=== PATIENT | female | born 1985 | race Caucasian/White ===

== ENCOUNTER 2018-06-04 02:06 | Emergency (ER) | payer MEDICAID ==
[~2018-06-04] VITALS: Ht 139.7 cm; Wt 37.3 kg
[2018-06-04] MEDS ORDERED: KETOROLAC TROMETHAMINE 60 MG/2 ML VIAL IM ONE (03:00)
[2018-06-04] MEDS ORDERED: CYCLOBENZAPRINE HCL 10 MG TABLET PO ONE (03:45)
[2018-06-04 04:25] VITALS: BP 120/80
== END 2018-06-04 04:25 | disposition home or self-care (01) ==
LOC: EMS 02:06
DX: M62.838 Other muscle spasm (principal); L50.9 Urticaria, unspecified
CPT/HCPCS: 96372; 99283; J1885

== ENCOUNTER 2018-08-07 19:36 | Emergency (ER) | payer MEDICAID ==
[~2018-08-07] VITALS: Ht 139.7 cm; Wt 39.1 kg
[2018-08-07 20:20] LABS: APPEARANCE,URINE CLEAR (CLEAR); BILIRUBIN,URINE NEGATIVE (NEGATIVE); GLUCOSE, URINE (UA) NEGATIVE (NEGATIVE); KETONES,URINE 40 mg/dL (NEGATIVE); LEUKOCYTE ESTERASE ,URINE NEGATIVE (NEGATIVE); NITRATE,URINE NEGATIVE (NEGATIVE); OCCULT BLOOD,URINE NEGATIVE (NEGATIVE); PH,URINE 6.5 (5.0-8.0); PROTEIN,URINE NEGATIVE (NEGATIVE); UROBILINOGEN,URINE 0.2 mg/dL (<=1.0)
[2018-08-07] MEDS ORDERED: VITAD50000 PO (20:20)
[2018-08-07] MEDS ORDERED: MULT-1203 PO (20:20)
[2018-08-07 20:30] LABS: BASOPHILS % (AUTO) 0.7 % (0.0-2.0); EOSINOPHILS % (AUTO) 0.7 % (1.0-6.0); HEMATOCRIT 41.8 % (36-46); LYMPHOCYTES # (AUTO) 0.9 K/uL (1.0-4.8); LYMPHOCYTES % (AUTO) 19.7 % (22.0-44.0); MEAN CORPUSCULAR HEMOGLOBIN 28.4 pg (26.0-34.0); MEAN CORPUSCULAR HGB CONC 33.5 G/dL (31.0-37.0); MEAN CORPUSCULAR VOLUME 85 fL (80-100); MONOCYTES # (AUTO) 0.3 K/uL (0.1-1.0); MONOCYTES % (AUTO) 6.9 % (2.0-9.0); NEUTROPHILS # (AUTO) 3.2 K/uL (1.8-7.7); PLATELET COUNT (AUTO) 251 K/uL (150-450); RED BLOOD CELL COUNT(AUTO) 4.93 MIL/uL (4.00-5.20); RED CELL DISTRIBUTION WIDTH 13.2 % (11.5-14.5)
[2018-08-07] MEDS ORDERED: SODIUM CHLORIDE 0.9% 1,000 ML IV ONE (20:30)
[2018-08-07] MEDS ORDERED: DICYCLOMINE HCL 20 MG TABLET PO ONE (20:30)
[2018-08-07 20:40] LABS: ANION GAP 8 mmol/L (8-16); CALCIUM, TOTAL 8.8 mg/dL (8.8-10.5); CARBON DIOXIDE 31 mmol/L (22-29); CHLORIDE 105 mmol/L (98-107); CREATININE 0.76 mg/dL (0.60-1.30); GLOMERULAR FILTR. RATE CALC > 60 mL/min (>60); GLUCOSE,RANDOM 136 mg/dL (70-110); POTASSIUM 3.5 mmol/L (3.5-5.1); SODIUM SERUM 144 mmol/L (136-145); UREA NITROGEN, BLOOD 10 mg/dL (7-18)
[2018-08-07 20:47] LABS: ALANINE AMINOTRANSFERASE 24 U/L (12-78); ALBUMIN 4.1 g/dL (3.4-5.0); ALKALINE PHOSPHATASE 83 U/L (46-116); ASPARTATE AMINOTRANSFERASE 22 U/L (15-37); BILIRUBIN,TOTAL 0.4 mg/dL (0.1-1.0); LIPASE 110 U/L (73-393); TOTAL PROTEIN, SERUM 8.3 g/dL (6.4-8.2)
[2018-08-07 21:07] VITALS: BP 124/76
== END 2018-08-07 21:34 | disposition home or self-care (01) ==
LOC: EMS 19:38
DX: R19.7 Diarrhea, unspecified (principal); R10.9 Unspecified abdominal pain; E03.9 Hypothyroidism, unspecified
CPT/HCPCS: 36415; 80053; 81003; 83690; 84703; 85025; 93005; 96360; 99284; J7030

== ENCOUNTER 2018-08-08 06:08 | Emergency (ER) | payer MEDICAID ==
[~2018-08-08] VITALS: Ht 134.6 cm; Wt 39.1 kg
[~2018-08-08 06:08] MED LIST: MULT-1203 PO; VITAD50000 PO
[2018-08-08 06:19] VITALS: BP 126/87
[2018-08-08] MEDS ORDERED: SODIUM CHLORIDE 0.9% 250 ML IV ONE (06:59)
== END 2018-08-08 09:10 | disposition home or self-care (01) ==
LOC: EMS 06:12
DX: F41.9 Anxiety disorder, unspecified (principal); R06.4 Hyperventilation; E03.9 Hypothyroidism, unspecified
CPT/HCPCS: 99283; J7050

== ENCOUNTER 2018-09-04 17:15 | Emergency (ER) | payer MEDICAID ==
[~2018-09-04] VITALS: Ht 139.7 cm; Wt 38.6 kg
[2018-09-04 17:47] LABS: EOSINOPHILS % (AUTO) 0.6 % (1.0-6.0); HEMATOCRIT 43.1 % (36-46); HEMOGLOBIN 14.4 g/dL (12.0-16.0); LYMPHOCYTES # (AUTO) 1.4 K/uL (1.0-4.8); LYMPHOCYTES % (AUTO) 24.6 % (22.0-44.0); MEAN CORPUSCULAR HEMOGLOBIN 28.7 pg (26.0-34.0); MEAN CORPUSCULAR HGB CONC 33.3 G/dL (31.0-37.0); MEAN CORPUSCULAR VOLUME 86 fL (80-100); MONOCYTES # (AUTO) 0.3 K/uL (0.1-1.0); MONOCYTES % (AUTO) 5.2 % (2.0-9.0); NEUTROPHILS # (AUTO) 3.8 K/uL (1.8-7.7); NEUTROPHILS % (AUTO) 68.6 % (40.0-70.0); PLATELET COUNT (AUTO) 238 K/uL (150-450); RED CELL DISTRIBUTION WIDTH 13.1 % (11.5-14.5)
[2018-09-04 18:03] LABS: ANION GAP 10 mmol/L (8-16); CALCIUM, TOTAL 8.9 mg/dL (8.8-10.5); CARBON DIOXIDE 29 mmol/L (22-29); CHLORIDE 101 mmol/L (98-107); CREATININE 0.73 mg/dL (0.60-1.30); GLOMERULAR FILTR. RATE CALC > 60 mL/min (>60); GLUCOSE,RANDOM 99 mg/dL (70-110); POTASSIUM 3.2 mmol/L (3.5-5.1); SODIUM SERUM 140 mmol/L (136-145); UREA NITROGEN, BLOOD 15 mg/dL (7-18)
[2018-09-04 18:12] LABS: ALANINE AMINOTRANSFERASE 20 U/L (12-78); ALBUMIN 4.1 g/dL (3.4-5.0); ALKALINE PHOSPHATASE 74 U/L (46-116); ASPARTATE AMINOTRANSFERASE 17 U/L (15-37); BILIRUBIN,TOTAL 0.6 mg/dL (0.1-1.0); FREE T4 (FREE THYROXINE) 1.11 ng/dL (0.76-1.46); TOTAL PROTEIN, SERUM 8.3 g/dL (6.4-8.2)
[2018-09-04] MEDS ORDERED: LORazepam 1 MG TABLET PO ONE (18:15)
[2018-09-04] MEDS ORDERED: POTASSIUM CHLORIDE 20 MEQ ER TABLET PO ONE (18:30)
[2018-09-04 20:00] VITALS: BP 118/71
== END 2018-09-04 20:21 | disposition home or self-care (01) ==
LOC: EMS 17:15
DX: F41.9 Anxiety disorder, unspecified (principal); R07.9 Chest pain, unspecified; R00.2 Palpitations; E03.9 Hypothyroidism, unspecified
CPT/HCPCS: 84439; 84443; 93005

== ENCOUNTER 2018-09-21 21:19 | Emergency (ER) | payer MEDICAID ==
[~2018-09-21] VITALS: Ht 139.7 cm; Wt 37.3 kg
[2018-09-21 21:39] VITALS: BP 116/69
[2018-09-21] MEDS ORDERED: SERT50TA12 PO (21:51)
[2018-09-21] MEDS ORDERED: HYDR-3421 PO (21:51)
== END 2018-09-22 01:30 | disposition left against medical advice (07) ==
LOC: EMS 21:20
DX: R51 Headache (principal); R42 Dizziness and giddiness; Z53.21 Procedure and treatment not carried out due to patient leaving prior to being seen by health care provider